=== PATIENT | male | born 1955 | race Two or more races ===

== ENCOUNTER 2022-01-12 08:05 | Outpatient (CLI) | payer OTHER | END 2022-01-12 23:59 | disposition home or self-care (01) | LOC: LAB 08:05 | PROVIDERS: ATTEND Orthopaedic Surgery | DX: Z01.812 Encounter for preprocedural laboratory examination (principal); Z20.822 Contact with and (suspected) exposure to COVID-19 ==

== ENCOUNTER 2022-01-13 09:57 | Outpatient (CLI) | payer OTHER | END 2022-01-13 23:59 | disposition home or self-care (01) | LOC: LAB 09:57 | PROVIDERS: ATTEND Internal Medicine | DX: Z01.818 Encounter for other preprocedural examination (principal); M23.203 Derangement of unspecified medial meniscus due to old tear or injury, right knee; E11.9 Type 2 diabetes mellitus without complications; I10 Essential (primary) hypertension | CPT/HCPCS: 36415; 71045; 85025; 85730; 93005; A4663 ==

== ENCOUNTER 2022-01-14 06:27 | Day surgery (SDC) | payer OTHER ==
[2022-01-13 10:40] LABS: HEMATOCRIT 40.8 % (36.7-47.1); MEAN CORPUSCULAR HEMOGLOBIN 33.7 uug (23.8-33.4); MEAN CORPUSCULAR VOLUME 99.8 fL (73.0-96.2); PLATELET COUNT (AUTO) 295 K/uL (152-348)
[2022-01-13 10:47] LABS: *BILIRUBIN,URIN NEGATIVE (NEGATIVE); *CLARITY,URINE CLEAR (CLEAR); *COLOR,URINE YELLOW (YELLOW); *KETONES,URINE NEGATIVE (NEGATIVE); *UROBILINOGEN,URINE 0.2 E.U./dl (NORMAL); LEUKOCYTE ESTERASE ,URINE NEGATIVE (NEGATIVE); NITRITE, URINE NEGATIVE (NEGATIVE); PH,URINE 5.5 (5.0-8.0); UGLUCOSE NEGATIVE (NEGATIVE)
[2022-01-13 10:49] LABS: *BLOOD, URINE TRACE (NEGATIVE)
[2022-01-13 10:52] LABS: CREATININE 0.9 mg/dL (0.6-1.3)
[2022-01-13 11:00] LABS: BILIRUBIN,TOTAL 0.3 mg/dL (0.2-1.0); TOTAL PROTEIN, SERUM 7.9 g/dL (6.4-8.2)
[2022-01-13 12:36] LABS: BACTERIA,URINE NONE SEEN /HPF (NONE SEEN); RBC,URINE 0-3 /HPF (0-3); SQUAMOUS EPITHELIAL CELL,UR FEW /HPF (NONE SEEN); WBC,URINE 0-3 /HPF (0-3)
[2022-01-14] MEDS ORDERED: METOCLOPRAMIDE HCL 10 MG/2 ML VIAL IV ONE (06:28)
[2022-01-14] MEDS ORDERED: SEVOFLURANE 250 ML BOTTLE IH ONE (06:28)
[2022-01-14] MEDS ORDERED: KETOROLAC TROMETHAMINE 30 MG INJ IM ONE (06:28)
[2022-01-14] MEDS ORDERED: CEFAZOLIN 1 G VIAL IM ONE (06:28)
[2022-01-14] MEDS ORDERED: LIDOCAINE-MPF 2% 5 ML VIAL IJ ONE (06:28)
[2022-01-14] MEDS ORDERED: ONDANSETRON 4 MG/2 ML VIAL IV ONE (06:28)
[2022-01-14] MEDS ORDERED: PROPOFOL 200 MG/20 ML BOTTLE IV ONE (06:28)
[2022-01-14] MEDS ORDERED: FENTANYL CITRATE 100 MCG/2 ML AMPUL ONE (07:55)
[2022-01-14] MEDS ORDERED: MIDAZOLAM HCL 2 MG/2 ML VIAL ONE (07:55)
[2022-01-14] MEDS ORDERED: BUPIVACAINE/EPI PF 0.5% 10 ML VIAL ONE (08:35)
[2022-01-14] MEDS ORDERED: SEVOFLURANE 250 ML BOTTLE ONE (08:36)
[2022-01-14] MEDS ORDERED: ACETAMINOPHEN/CODEINE 300-30 MG TABLET ONE (10:14)
== END 2022-01-14 11:25 | disposition home or self-care (01) ==
LOC: DS 06:27
PROVIDERS: ATTEND Orthopaedic Surgery
DX: S83.241A Other tear of medial meniscus, current injury, right knee, initial encounter (principal); M94.261 Chondromalacia, right knee; I10 Essential (primary) hypertension; E11.9 Type 2 diabetes mellitus without complications; M19.90 Unspecified osteoarthritis, unspecified site; Z79.82 Long term (current) use of aspirin; Z79.84 Long term (current) use of oral hypoglycemic drugs; Z79.899 Other long term (current) drug therapy; Z98.890 Other specified postprocedural states; X58.XXXA Exposure to other specified factors, initial encounter; Y93.89 Activity, other specified; Y92.89 Other specified places as the place of occurrence of the external cause; Y99.8 Other external cause status
CPT/HCPCS: 29881; 97161; 97116; 97530; J3490 ×2; J0690; J1885; J2765; J2250; J2405; J3010; J7040; 36415; 71045; 85025; 85730; 93005; A4663